=== PATIENT | female | born 1980 | race Caucasian/White ===

== ENCOUNTER 2022-02-11 22:14 | Inpatient (IN) | payer OTHER, BC ==
[~2022-02-11] VITALS: Ht 165.1 cm; Wt 111.1 kg
[2022-02-11 22:22] VITALS: BP 155/99
--- NOTE | 2022-02-11 22:30 | NUR ---
TRIAGED, TO BR FOR UA THEN TO BED
--- NOTE | 2022-02-11 22:35 | NUR ---
Patient being evaluated by physician at bedside.
[2022-02-11] MEDS ORDERED: MORPHINE SULFATE 4 MG/ML SYR IVP ONE (22:40)
[2022-02-11] MEDS ORDERED: ONDANSETRON 4 MG/2 ML VIAL IVP ONE (22:40)
[2022-02-11] MEDS ORDERED: KETOROLAC 30 MG/ML VIAL IVP ONE (22:40)
[2022-02-11] MEDS ORDERED: NACL 0.9% 1,000 ML IV ONE (22:40)
--- NOTE | 2022-02-11 22:57 | NUR ---
PT TO CT
[2022-02-11 23:06] LABS: BASOPHILS # (AUTO) 0.1 K/uL (0.00-0.22); BASOPHILS % (AUTO) 0.8 % (0.0-2.0); EOSINOPHILS # (AUTO) 0.2 K/uL (0-0.4); EOSINOPHILS % (AUTO) 2.1 % (0.0-4.0); HEMATOCRIT 37.5 % (36-48); HEMOGLOBIN 13.3 g/dL (12.0-16.0); LYMPHOCYTES # (AUTO) 2.3 K/uL (2.5-16.5); LYMPHOCYTES % (AUTO) 30.4 % (20.5-51.1); MEAN CORPUSCULAR HEMOGLOBIN 31 pg (27-31); MEAN CORPUSCULAR HGB CONC 36 g/dL (33-37); MEAN CORPUSCULAR VOLUME 86.8 fL (80-94); MONOCYTES # (AUTO) 0.3 K/uL (0.8-1.0); MONOCYTES % (AUTO) 4.5 % (1.7-9.3); NEUTROPHILS # (AUTO) 4.7 K/uL (1.8-7.7); NEUTROPHILS % (AUTO) 62.2 % (42.2-75.2); PLATELET COUNT (AUTO) 269 K/uL (140-450); RED BLOOD CELL COUNT(AUTO) 4.32 MIL/uL (4.20-5.40); RED CELL DISTRIBUTION WIDTH 13.3 % (11.6-13.7); WHITE BLOOD COUNT (AUTO) 7.6 K/uL (4.8-10.8)
[2022-02-11 23:20] LABS: ALBUMIN 3.9 g/dL (3.4-5.0); ANION GAP 13.3 (8-16); CARBON DIOXIDE 24.3 mmol/L (21-32); CREATININE 0.8 mg/dL (0.6-1.3); POTASSIUM 3.6 mmol/L (3.5-5.1); TOTAL BILIRUBIN 0.4 mg/dL (0.0-1.0)
--- NOTE | 2022-02-11 23:27 | NUR ---
41YR OLD FEMALE BIB SELF C/O FLANK/RLQ PAIN. SX STARTED X2 DAYS AGO. PT STATES HAVING URINARY RETENTION IN PAST. PAIN SHARP/ACHE FROM RL FLANK AREA TO RLQ 10/. PT IS A&OX4 ON BEDSIDE MONITOR. SKIN WARM AND DRY. HOB ELEVATED BED AT LOWEST POSITION GUAIFENESIN PAROXETINE SULA
[2022-02-12] MEDS ORDERED: HYDROmorphone PFS 2 MG/ML SYR IVP ONE
[2022-02-12 00:16] LABS: APPEARANCE,URINE HAZY (CLEAR); BILIRUBIN,URINE NEGATIVE (NEGATIVE); BLOOD, URINE 3+ (NEGATIVE); COLOR,URINE YELLOW (YELLOW); LEUKOCYTE ESTERASE ,URINE NEGATIVE (NEGATIVE); NITRITE, URINE NEGATIVE (NEGATIVE); UGLUCOSE NEGATIVE (NEGATIVE)
--- NOTE | 2022-02-12 00:16 | NUR ---
COVID SWAB COLLECTED AND SENT TO LAB
[2022-02-12] MEDS ORDERED: GABA100C PO (00:18)
[2022-02-12] MEDS ORDERED: [UNRECOGNIZED DRUG - SUPPLY] PO (00:20)
[2022-02-12 00:30] LABS: RBC,URINE >100 /HPF (0-5); WBC,URINE 0-5 /HPF (0-5)
--- NOTE | 2022-02-12 00:32 | NUR ---
ADMISSIN ORDERS FOR MEDSURG. PENDING BED ASSIG.
[2022-02-12] MEDS: NACL 0.9% 1,000 ML IV SCH ×4 (01:27→21:04)
--- NOTE | 2022-02-12 01:50 | NUR ---
Patient will be admitted to care of DR SUAREZ. Admited to TELE. Will go to room 112A. Belongings list completed. Report to TODD DILLON.
--- NOTE | 2022-02-12 02:08 | NUR ---
The patient's care was reviewed and supervised by Larissa Guido RN.
--- NOTE | 2022-02-12 02:15 | NUR ---
RECEIVED REPORT FROM SCALES INSPECTORWILMA HERNANDEZ FOR CONTINUITY OF CARE. PT ARRIVED ON MST UNIT FROM ER VIA [facility]. PT AMBULATES. GAIT SLOW BUT STEADY FROM RWINDSOR TO BED. A&OX4. PAIN LEVEL AT 5 NOW. ON RM AIR/O2 WITH NO ACUTE DISTRESS. RR EVEN AND UNLABORED WITH EQUAL CHEST RISE. GI INTACT . ON REGULAR DIET. PT'S SKIN IS INTACT. IV 20 G LAC FLUSHED AND PATENT. PT IS AMBULATORY AND CONTINENT. ALL SAFETY MEASURES IN PLACE. CALL LIGHT WITHIN REACH.
--- NOTE | 2022-02-12 03:15 | NUR ---
PT C/O 09/02 R FLANK PAIN. MEDICATED WITH MORPHINE SULFATE 2MG IVP. NS@150CC/HR INFUSING INTO LAC 20G IV. WILL CONTINUE TO MONITOR.
[2022-02-12] MEDS: MORPHINE SULFATE 2 MG/ML SYR IVP PRN ×5 (03:17→21:33)
--- NOTE | 2022-02-12 04:15 | NUR ---
REASSESSED PAIN LEVEL. MSO4 EFFECTIVE. PAIN LEVEL NOW A 2/10.
[2022-02-12 05:14] VITALS: BP 106/50
--- NOTE | 2022-02-12 06:15 | NUR ---
TIANA SIMON. PT NOTICED BUMP ON RAMÍREZ. IV INFILTRATED. IV REMOVED AND WARM COMPRESS PLACED ON SITE. NEW IV INSERTED INTO RFA 20G BY PEDRITO DILLON.
--- NOTE | 2022-02-12 07:39 | NUR ---
ENDORSED PT REPORT TO AM NURSE PAMELLA BARTON FOR CONTINUITY OF CARE. PT IS STABLE. C/O 6/10 PAIN IN R FLANK . RECEIVED MSO4 2MG IVP. ALL NEEDS MET THROUGHOUT THE SHIFT.
--- NOTE | 2022-02-12 07:46 | NUR ---
RECEIVED REPORT FROM INTEGRATION LEAD NURSE FOR CONTINUITY OF CARE. PT IN BED AWAKE AND ALERT WATCHING TV. PT ABLE TO VERBALIZE NEEDS. RESPIRATIONS EVEN AND UNLABORED ON RA. IV ON R FOREARM 20G, INFUSING NS AT 150CC/HR. NO DISTRESS NOTED. CALL LIGHT WITHIN REACH. ALL SAFETY PRECAUTIONS IN PLACE.
[2022-02-12 08:00] VITALS: BP 94/44
--- NOTE | 2022-02-12 09:30 | NUR ---
PT ASKING WHEN DR WILL BE SEEING HER. INFORMED HER DR IS MAKING ROUNDS AND WILL BE SEEN SHORTLY.
--- NOTE | 2022-02-12 09:53 | NUR ---
PATIENT HAS BEEN SCREENED AND CATEGORIZED MODERATE NUTRITION RISK. PATIENT WILL BE SEEN WITHIN 3-5 DAYS OF ADMISSION. 02/12/22-02/17/[address]
[2022-02-12] MEDS ORDERED: ONDANSETRON 4 MG/2 ML VIAL IVP PRN ×2 (11:30→11:35)
--- NOTE | 2022-02-12 11:45 | NUR ---
PT C/O NAUSEA. INFORMED DR. MARINA. ORDERED PRN ZOFRAN.
--- NOTE | 2022-02-12 11:53 | NUR ---
PT MEDICATED WITH ZOFRAN AND MORPHINE IV BY WILMA AYALA.
[2022-02-12 16:00] VITALS: BP 121/51
--- NOTE | 2022-02-12 16:11 | NUR ---
PT COMPLAINED OF SEVERE FLANK PAIN, MEDICATED WITH PRN MORPHINE FOR FLANK PAIN 01/02.
--- NOTE | 2022-02-12 19:30 | NUR ---
RECEIVED PATIENT ENDORSEMENT FROM PAMELLA DILLON, PATIENT WAS STABLE DURING CHANGE OF SHIFT. PATIENT ALERT ORIENT X 4. PATIENT IS ABLE TO EXPLAIN WHY SHE IS IN THE HOSPITAL. DENIES ANY PAIN AT THIS TIME. NO NOTED S/S OF RESPIRATORY DISTRESS. PATIENT WAS LAYING IN BED IN HIGH STRONG. SIDE RAIL X 2 FOR SAFETY AND SELF ADJUSTMENTS. CALL LIGHT WAS WITHIN REACH FOR ASSISTANCE. PATIENT HAS HAD NOT USED THE RESTROOM AND NOTED A STONE. [email or web address]
[2022-02-12 20:00] VITALS: BP 119/66
--- NOTE | 2022-02-12 22:46 | NUR ---
PATIENT IN BED RESTING. EASY TO WAKE BY CALLING HER NAME. DENIES ANY PAIN AT THIS TIME. NO NOTED S/S OF RESPIRATORY DISTRESS. PATIENT WAS LAYING IN BED IN HIGH STRONG. SIDE RAIL X 2 FOR SAFETY AND SELF ADJUSTMENTS. CALL LIGHT WAS WITHIN REACH FOR ASSISTANCE. PATIENT DENIES ANY RESTROOM BREAKS AT THIS TIME. [email or web address]
--- NOTE | 2022-02-13 | NUR ---
PATIENT IN BED NOTED ASLEEP. NO NOTED S/S OF RESPIRATORY DISTRESS. PATIENT WAS LAYING IN BED IN HIGH STRONG. SIDE RAIL X 2 FOR SAFETY AND SELF ADJUSTMENTS. CALL LIGHT WAS WITHIN REACH FOR ASSISTANCE. [email or web address]
--- NOTE | 2022-02-13 02:48 | NUR ---
PATIENT KEPT COMFORTABLE. NO NOTED S/S OF RESPIRATORY DISTRESS. PATIENT WAS LAYING IN BED IN HIGH STRONG. SIDE RAIL X 2 FOR SAFETY AND SELF ADJUSTMENTS. CALL LIGHT WAS WITHIN REACH FOR ASSISTANCE. [email or web address]
[2022-02-13] MEDS: NACL 0.9% 1,000 ML IV SCH ×2 (03:05→09:24)
[2022-02-13] MEDS: MORPHINE SULFATE 2 MG/ML SYR IVP PRN ×3 (03:28→12:14)
[2022-02-13 04:00] VITALS: BP 122/76
--- NOTE | 2022-02-13 04:49 | NUR ---
NO NOTED ADVERSE REACTION TO PAIN MANAGEMENT GIVEN BY COVERING RN. PATIENT WAS ABLE TO SLEEP DURING THE NIGHT WITHOUT DISTURBANCE. SIDE RAILS UP X 2. CALL LIGHT WITHIN RANGE. [email or web address]
--- NOTE | 2022-02-13 05:18 | NUR ---
PATIENT WAS ABLE TO SLEEP DURING THE NIGHT WITHOUT DISTURBANCE. NO NOTED KIDNEY STONE. SIDE RAILS UP X 2. CALL LIGHT WITHIN RANGE. [email or web address]
--- NOTE | 2022-02-13 07:04 | NUR ---
ENDORSED PATIENT TO CHUNG DILLON FOR CONTINUITY OF CARE. PATIENT WAS STABLE DURING SHIFT REPORT. [email or web address]
[2022-02-13 08:15] VITALS: BP 123/60
[2022-02-13] MEDS ORDERED: TAMSULOSIN 0.4 MG CAP PO SCH (08:30)
[2022-02-13] MEDS ORDERED: MAG SULF 2000 MG/WATER PREMIX 50 ML IV PRN (08:55)
[2022-02-13] MEDS ORDERED: POTASSIUM CHLORIDE 10 MEQ TABER PO PRN (08:55)
[2022-02-13] MEDS ORDERED: IBUP-2213 PO (08:56)
[2022-02-13] MEDS ORDERED: TAMS0.4C96 PO (08:56)
[2022-02-13 09:49] LABS: BASOPHILS % (AUTO) 0.9 % (0.0-2.0); EOSINOPHILS # (AUTO) 0.1 K/uL (0-0.4); EOSINOPHILS % (AUTO) 3.2 % (0.0-4.0); HEMATOCRIT 34.3 % (36-48); HEMOGLOBIN 12.1 g/dL (12.0-16.0); LYMPHOCYTES # (AUTO) 1.5 K/uL (2.5-16.5); LYMPHOCYTES % (AUTO) 37.4 % (20.5-51.1); MEAN CORPUSCULAR HEMOGLOBIN 31 pg (27-31); MEAN CORPUSCULAR HGB CONC 35 g/dL (33-37); MEAN CORPUSCULAR VOLUME 87.5 fL (80-94); MONOCYTES # (AUTO) 0.2 K/uL (0.8-1.0); MONOCYTES % (AUTO) 4.5 % (1.7-9.3); NEUTROPHILS # (AUTO) 2.2 K/uL (1.8-7.7); PLATELET COUNT (AUTO) 223 K/uL (140-450); RED BLOOD CELL COUNT(AUTO) 3.92 MIL/uL (4.20-5.40); RED CELL DISTRIBUTION WIDTH 13.1 % (11.6-13.7); WHITE BLOOD COUNT (AUTO) 4.1 K/uL (4.8-10.8)
[2022-02-13 10:06] LABS: ALBUMIN 3.3 g/dL (3.4-5.0); ANION GAP 12.8 (8-16); CARBON DIOXIDE 24.9 mmol/L (21-32); CREATININE 0.6 mg/dL (0.6-1.3); POTASSIUM 3.7 mmol/L (3.5-5.1); TOTAL BILIRUBIN 0.6 mg/dL (0.0-1.0)
[2022-02-13 11:52] VITALS: BP 128/79
== END 2022-02-13 15:58 | disposition home or self-care (01) | DRG 694 ==
LOC: MED 22:14 → MMU 02-12 00:27 → MTU 02-12 01:24
PROVIDERS: ADMIT Family Medicine; ATTEND Family Medicine
DX: N13.2 Hydronephrosis with renal and ureteral calculous obstruction (principal); E44.1 Mild protein-calorie malnutrition; Z68.41 Body mass index [BMI] 40.0-44.9, adult; E87.1 Hypo-osmolality and hyponatremia; E86.0 Dehydration; Z20.822 Contact with and (suspected) exposure to COVID-19; R73.9 Hyperglycemia, unspecified; Z88.2 Allergy status to sulfonamides; Z88.8 Allergy status to other drugs, medicaments and biological substances; Z79.899 Other long term (current) drug therapy
CPT/HCPCS: 36415; 80053; 81001; 85025; 87040; 87081; 96374; 96375; 99285; J1170; J1885; J2270; J2405

== ENCOUNTER 2023-03-12 12:22 | Emergency (ER) | payer BC, OTHER ==
[~2023-03-12] VITALS: Ht 167.6 cm; Wt 90.7 kg
[~2023-03-12 12:22] MED LIST: GABA100C PO; IBUP-2213 PO; TAMS0.4C96 PO; [UNRECOGNIZED DRUG - SUPPLY] PO
[2023-03-12 12:40] VITALS: BP 136/94; PULSE 98; RESP 18; TEMP 98; O2SAT 98
[2023-03-12] MEDS ORDERED: BACI-418 TP (13:55)
[2023-03-12] MEDS ORDERED: CEPH-588 PO (13:55)
[2023-03-12] MEDS ORDERED: BPM/-9 PO (13:55)
[2023-03-12] MEDS ORDERED: ONDA-188 SL (13:55)
[2023-03-12 14:07] LABS: FLU A ANTIGEN negative (NEGATIVE); FLU B ANTIGEN negative (NEGATIVE)
[2023-03-12] MEDS ORDERED: BENZ200C4 PO (14:13)
== END 2023-03-12 14:20 | disposition home or self-care (01) ==
LOC: MED 12:22
DX: J06.9 Acute upper respiratory infection, unspecified (principal); Z20.822 Contact with and (suspected) exposure to COVID-19; J45.909 Unspecified asthma, uncomplicated; N18.9 Chronic kidney disease, unspecified; Z88.2 Allergy status to sulfonamides; Z88.8 Allergy status to other drugs, medicaments and biological substances; Z79.899 Other long term (current) drug therapy
CPT/HCPCS: 99283

== ENCOUNTER 2023-11-14 15:09 | Emergency (ER) | payer BC, OTHER ==
[~2023-11-14] VITALS: Ht 165.1 cm; Wt 105.7 kg
[~2023-11-14 15:09] MED LIST changes: +BACI-418 TP; +BENZ200C4 PO; +CEPH-588 PO; +ONDA-188 SL
[2023-11-14 15:15] VITALS: BP 146/92; PULSE 100; RESP 18; TEMP 97.8; O2SAT 95
[2023-11-14] MEDS: KETOROLAC 30 MG/ML VIAL IVP ONE (16:01)
[2023-11-14] MEDS: ONDANSETRON 4 MG/2 ML VIAL IVP ONE (16:05)
[2023-11-14 16:07] LABS: BASOPHILS % (AUTO) 0.6 % (0.0-2.0); EOSINOPHILS # (AUTO) 0.3 K/uL (0-0.4); EOSINOPHILS % (AUTO) 4.9 % (0.0-4.0); HEMATOCRIT 36.5 % (36-48); HEMOGLOBIN 11.9 g/dL (12.0-16.0); LYMPHOCYTES # (AUTO) 2.5 K/uL (2.5-16.5); LYMPHOCYTES % (AUTO) 47.3 % (20.5-51.1); MEAN CORPUSCULAR HEMOGLOBIN 27 pg (27-31); MEAN CORPUSCULAR HGB CONC 33 g/dL (33-37); MEAN CORPUSCULAR VOLUME 81.2 fL (80-94); MONOCYTES # (AUTO) 0.3 K/uL (0.8-1.0); MONOCYTES % (AUTO) 6.5 % (1.7-9.3); NEUTROPHILS # (AUTO) 2.1 K/uL (1.8-7.7); NEUTROPHILS % (AUTO) 40.7 % (42.2-75.2); PLATELET COUNT (AUTO) 238 K/uL (140-450); RED CELL DISTRIBUTION WIDTH 14.6 % (11.6-13.7); WHITE BLOOD COUNT (AUTO) 5.2 K/uL (4.8-10.8)
[2023-11-14 16:18] LABS: APPEARANCE,URINE SL CLOUDY (CLEAR); BILIRUBIN,URINE NEGATIVE (NEGATIVE); BLOOD, URINE 3+ (NEGATIVE); COLOR,URINE YELLOW (YELLOW); LEUKOCYTE ESTERASE ,URINE NEGATIVE (NEGATIVE); NITRITE, URINE NEGATIVE (NEGATIVE); PROTEIN,URINE NEGATIVE (NEGATIVE); UGLUCOSE NEGATIVE (NEGATIVE); UROBILINOGEN,URINE 0.2 EU/dL (0.2 - 1)
[2023-11-14 16:18] LABS: CALCIUM 9.7 mg/dL (8.5-10.1); CARBON DIOXIDE 21.7 mmol/L (21-32); CREATININE 0.6 mg/dL (0.6-1.3); POTASSIUM 3.7 mmol/L (3.5-5.1)
[2023-11-14 16:21] LABS: BACTERIA,URINE FEW /HPF (None Seen); RBC,URINE 11-20 (MOD) /HPF (0-5); SQUAMOUS EPITHELIAL CELL,UR 0-3 (FEW) /LPF (0-3 (FEW)); WBC,URINE 0-5 /HPF (0-5)
[2023-11-14 16:22] LABS: CALCIUM OXALATE CRYSTALS,UR 0-10 /HPF (None Seen)
[2023-11-14] MEDS: fentaNYL citrate 0.05 MG/ML VIAL IVP ONE ×2 (17:00→18:13)
[2023-11-14] MEDS ORDERED: ONDA-188 PO (17:52)
[2023-11-14] MEDS ORDERED: NAPR-1704 PO (17:52)
[2023-11-14] MEDS ORDERED: TAMS0.4C96 PO (17:52)
[2023-11-14] MEDS: NACL 0.9% 1,000 ML IV ONE (18:08)
[2023-11-14 18:34] VITALS: BP 119/59; PULSE 71; RESP 18; TEMP 97.8
[2023-11-14 18:44] VITALS: O2SAT 95
== END 2023-11-14 19:28 | disposition home or self-care (01) ==
LOC: MED 15:09
DX: N23 Unspecified renal colic (principal); J45.909 Unspecified asthma, uncomplicated; Z98.890 Other specified postprocedural states; Z79.899 Other long term (current) drug therapy; Z79.1 Long term (current) use of non-steroidal anti-inflammatories (NSAID); Z88.2 Allergy status to sulfonamides; Z88.8 Allergy status to other drugs, medicaments and biological substances
CPT/HCPCS: 36415; 80048; 81001; 81025; 85025; 96361; 96374; 96375; 96376; 99284; J1885; J2405; J3010; J7030